=== PATIENT | male | born 1945 | race Caucasian/White ===

== ENCOUNTER 2018-04-15 10:58 | Observation (INO) | payer OTHER, MEDICARE ==
[~2018-04-15] VITALS: Ht 170.2 cm; Wt 91.1 kg
[~2018-04-15 10:58] MED LIST: ADULT LOW STREN81 M2 PO; ENDOCET 5-3251 EACH PO; SIMVASTATIN10 MG PO; Zocor PO
[2018-04-15 11:51] LABS: BASOPHIL (%) 0.5 % (0-1); BASOPHIL COUNT 0.1 K/uL (0-0.1); EOSINOPHIL (%) 0.3 % (0-5); EOSINOPHIL COUNT 0.1 K/uL (0-0.3); HEMOGLOBIN 14.1 G/DL (12.5-16.6); IMMATURE GRANULOCYTE (%) 0.8 % (0.0-0.7); MCH 32.5 PG (29.0-34.0); MCHC 35.3 G/DL (30.0-36.0); MCV 92.2 FL (86-99); MONOCYTE (%) 13.2 % (3-12); MONOCYTE COUNT 2.2 K/uL (0-0.8); NEUTROPHIL (%) 73.2 % (45-76); NEUTROPHIL COUNT 12.1 K/uL (1.8-6.4); PLATELET COUNT 238 K/uL (156-360); RBC DIS.WIDTH-CV 12.2 % (11.8-14.6); RBC DIS.WIDTH-SD 41.1 % (39-53); RED BLOOD COUNT 4.34 M/uL (4.00-5.50); WHITE BLOOD COUNT 16.5 K/uL (4.1-10.2)
[2018-04-15 11:56] LABS: INTER. NORMALIZED RATIO 1.2
[2018-04-15 11:58] LABS: PTT 24.9 SEC (25-37)
[2018-04-15 12:02] LABS: AMYLASE 48 IU/L (1-118); CHLORIDE 109 mEq/L (99-109); POTASSIUM 4.1 mEq/L (3.7-5.4); SODIUM 140 mEq/L (136-147)
[2018-04-15 12:04] LABS: GLUCOSE 137 mg/dL (70-99)
[2018-04-15 12:07] LABS: SERUM ETHYL ALCOHOL < 10 mg/dL
[2018-04-15 12:08] LABS: CREATININE 1.2 mg/dL (0.6-1.3); GFR ESTIMATE (CALCULATED) > 59 mL/min/ (58.99-99999)
[2018-04-15 12:09] LABS: UREA NITROGEN (BUN) 24 mg/dL (9-23)
[2018-04-15 12:11] LABS: LIPASE 15 U/L (1.0-51.0)
[2018-04-15 12:12] LABS: TROP-I INTERPRETATION NEGATIVE; TROPONIN-I 0.03 ng/mL (0.0-0.30)
[2018-04-15] MEDS ORDERED: CIPROFLOXACIN500 M1 PO (13:11)
[2018-04-15] MEDS ORDERED: FIBER500 MG PO (13:12)
[2018-04-15] MEDS ORDERED: SENNA8.6 MG PO (13:12)
[2018-04-15 13:25] LABS: THYROTROPIN (TSH) 1.3 MIU/L (0.4-5.5)
[2018-04-15 15:15] VITALS: BP 123/66
[2018-04-15 16:17] VITALS: BP 133/74
[2018-04-15 19:10] VITALS: BP 134/72
[2018-04-15 22:26] LABS: TROP-I INTERPRETATION NEGATIVE; TROPONIN-I 0.01 ng/mL (0.0-0.30)
[2018-04-16] VITALS: BP 159/74
[2018-04-16 02:59] LABS: HEMATOCRIT 37.5 % (38.0-50.0); HEMOGLOBIN 13.1 G/DL (12.5-16.6); MCH 32.6 PG (29.0-34.0); MCHC 34.9 G/DL (30.0-36.0); MCV 93.3 FL (86-99); PLATELET COUNT 213 K/uL (156-360); RBC DIS.WIDTH-CV 12.3 % (11.8-14.6); RBC DIS.WIDTH-SD 42.7 % (39-53); RED BLOOD COUNT 4.02 M/uL (4.00-5.50); WHITE BLOOD COUNT 9.7 K/uL (4.1-10.2)
[2018-04-16 03:21] LABS: TROP-I INTERPRETATION NEGATIVE; TROPONIN-I < 0.01 ng/mL (0.0-0.30)
[2018-04-16 05:07] VITALS: BP 163/77
[2018-04-16 07:12] VITALS: BP 159/71
[2018-04-16] MEDS ORDERED: ASPIR-LOW81 MG PO (08:52)
[2018-04-16] MEDS ORDERED: CEPHALEXIN500 MG PO (09:00)
[2018-04-16 11:32] VITALS: BP 158/73
[2018-04-16 11:44] LABS: APPEARANCE CLOUDY ((CLEAR)); BILIRUBIN NEGATIVE; BLOOD SMALL; COLOR YELLOW ((YELLOW)); GLUCOSE (STRIP) NEGATIVE; KETONES NEGATIVE; LEUKOCYTES LARGE; NITRITE POSITIVE; PROTEIN (STRIP) NEGATIVE; SPECIFIC GRAVITY 1.016 (1.000-1.030); UROBILINOGEN 0.2 MG/DL (0.2-1.0)
[2018-04-16 12:44] LABS: BACTERIA 2+ /HPF; EPITHELIAL CELLS 1+ /HPF; MUCUS NONE SEEN /LPF; RED BLOOD CELLS 0-5 /HPF (0-5); UCUL ADDED? YES; WHITE BLOOD CELLS 30-40 /HPF (0-5)
== END 2018-04-16 15:10 | disposition home or self-care (01) ==
LOC: EME 10:58 → 4SOUTH 12:22 → EDOF 12:22 → ENRESERV 12:41 → 4SOUTH 15:01
PROVIDERS: Emergency Medicine; Hospitalist
DX: I48.91 Unspecified atrial fibrillation (principal); R55 Syncope and collapse; N39.0 Urinary tract infection, site not specified; I10 Essential (primary) hypertension; B96.20 Unspecified Escherichia coli [E. coli] as the cause of diseases classified elsewhere; I44.7 Left bundle-branch block, unspecified; Z79.82 Long term (current) use of aspirin; Z72.0 Tobacco use; Z82.49 Family history of ischemic heart disease and other diseases of the circulatory system
CPT/HCPCS: 70450; 71045; 80048; 80306 90; 81003; 82150; 83690; 84443; 84484; 85025; 85027; 85610; 85730; 86850; 86900; 86901; 87077; 87086; 87186; 93005; 99281; 99284; G0378; G0480; J0696; J7030